=== PATIENT | female | born 1980 | race Caucasian/White ===

== ENCOUNTER 2017-09-13 22:16 | Emergency (ER) | payer MEDICAID ==
[2017-09-13] MEDS: BACITRACIN 0.9 GM OINT TOP (23:15)
== END 2017-09-13 23:24 | disposition home or self-care (01) ==
LOC: E/R 22:16
DX: S81.832A Puncture wound without foreign body, left lower leg, initial encounter (principal); W34.010A Accidental discharge of airgun, initial encounter; Y92.9 Unspecified place or not applicable
CPT/HCPCS: 73590; 99283-25